=== PATIENT | female | born 1945 | race Caucasian/White ===

== ENCOUNTER → 2019-01-31 14:14 | Outpatient (CLI) | payer MEDICARE, OTHER, SELFPAY ==
--- NOTE | 2019-02-02 10:37 | DI.NM.S_ITS ---
DATE OF SERVICE: 01/31/2019 PROCEDURE PERFORMED: Exercise treadmill [id number] myocardial perfusion imaging study with gating to assess ejection fraction and regional wall motion. ORDERING PROVIDER: Maciel Graves MD INDICATIONS: The patient is a 73-year-old female with a history of coronary artery bypass grafting, now with atypical symptoms. EXERCISE TREADMILL TESTING: The patient was able to exercise for a total of 7 minutes and 2 seconds on standard Tim protocol, suggesting very good exercise capacity with YESIKA of -27%. She had a normal heart rate response, achieving a maximum heart rate of 132 bpm (89% of her predicted maximum). She had a hypertensive blood pressure response with a resting blood pressure of 160/90, increasing to a peak of 240/100. She had no chest discomfort. Her resting ECG shows sinus rhythm with fairly normal ST segments. With exercise, she develops 1-[address] depression that promptly becomes upsloping in early recovery but then with later down-sloping ST depression in the inferolateral leads, which could be an ischemic response but is nonspecific in the setting of a hypertensive blood pressure response. There were no arrhythmias. At 6 minutes 10 seconds of exercise, at a heart rate of 132 bpm, 25.5 mCi of technetium-99 Myoview was injected and the patient was imaged 20 minutes later using a gated SPECT acquisition protocol. She returned the following day and was reinjected with an additional 24.9 mCi of technetium-99 Myoview and was imaged 15 minutes later, again using a gated SPECT acquisition protocol. FINDINGS: 1. Raw data: There is fairly good myocardial tracer uptake with slight breast shadows noted. The lung/heart ratio is normal at 0.38 with a normal TID ratio of 0.84. 2. Quantitative gated SPECT: Post-stress ejection fraction is estimated at 74% without any focal wall motion abnormality and specifically the anterior wall appears to have brisk contractility. The resting ejection fraction is also 74% without any wall motion abnormality with a resting end-diastolic volume of 96 mL. 3. Myocardial perfusion imaging: Post-stress supine images show a fairly normal myocardial perfusion pattern with a very subtle defect in the distal anterior wall extending to, but not including, the apex. This defect completely resolves on the prone images and thus likely reflects breast attenuation. The resting images show a similar perfusion pattern with a mild defect in the distal anterior wall, although slightly improved. Yet, given the normal prone images, this likely reflects differential breast positioning. CONCLUSIONS: 1. Probable normal myocardial perfusion study. 2. Subtle, small, predominantly fixed but slightly reversible perfusion defect in the distal anterior wall that resolves on prone imaging, most consistent with breast attenuation artifact. There is no compelling evidence for significant myocardial ischemia or previous myocardial infarction. 3. Normal left ventricular systolic function without any focal wall motion abnormality. 4. Very good exercise capacity without angina but with a significant hypertensive blood pressure response to exercise. There are ST and T-wave abnormalities with exercise and in recovery that could reflect an ischemic response or a manifestation of her hypertensive blood pressure response. Given the absence of any profound perfusion defects, the latter is suspected. Edilma Rivera - RS/fn/ts doc#: [id number]/job#: [id number] dd: 02/01/2019 12:47:00 dt: 02/02/2019 10:14:00 DICTATING MD/COPIES TO: Leo Fernandez MD; Maciel Graves MD; Kaye Díaz COPIES MNE: MARVEL BOURGEOIS
== END ==
PROVIDERS: Visit Provider Internal Medicine Cardiovascular Disease
DX: I25.10 Atherosclerotic heart disease of native coronary artery without angina pectoris (principal); Z95.1 Presence of aortocoronary bypass graft
CPT/HCPCS: 78452; 93016; 93017; 93018; A9502

== ENCOUNTER → 2023-05-31 12:07 | Outpatient (CLI) | payer MEDICARE, SELFPAY ==
--- NOTE | 2023-05-31 12:08 | DI.ECHO.S_ITS ---
[facility] +---------+ : : [address] [place] [address] : : : : [id number] : : : : Phone: [phone]+ Echocardiogram Report + + :Name: JANNET STEVE Study Date: 05/31/2023 Height: 63.5 in: :[facility] ReadingLocation: Weight: 167 lb : : Gender: Female BSA: 1.8 m2 : :: 1945 Age: 78 yrs BP: 185/76 mmHg: :Reason For Study: CARDIAC MURMUR : :Ordering Physician: OSCAR, : :FINA Nascimento Performed By: Kelsey Wheeler : :Referring: FINA MOORE W : + + Interpretation Summary The left ventricle is normal in size. The left ventricular ejection fraction is normal. The ejection fraction is estimated to be 55-60%. Diastolic parameters suggest a pseudonormalization pattern, consistent with probable elevated filling pressures. The right ventricle is normal size. The right ventricular systolic function is normal. There is mild to moderate mitral regurgitation. The aortic valve is mildly calcified. The aortic valve is not well visualized. There is mildly reduced leaflet mobility. No significant aortic stenosis. There is moderate tricuspid regurgitation. The right ventricular systolic pressure is estimated to be at least 32 mmHg based on an estimated right atrial pressure of 3 mm Hg. BP: 185/76 mmHg Procedure: A two-dimensional transthoracic echocardiogram with color flow and Doppler was performed. The study quality was technically adequate. There is no prior echocardiogram noted for this patient. The patient was in sinus rhythm with heart rates between 55-75 bpm during the exam. Left Ventricle: The left ventricle is normal in size. Left ventricular wall thickness is mildly increased. Proximal septal thickening is noted. There is no thrombus. The ejection fraction is estimated to be 55-60%. The left ventricular ejection fraction is normal. There are no focal wall motion abnormalities. Diastolic parameters suggest a pseudonormalization pattern, consistent with probable elevated filling pressures. Right Ventricle: The right ventricle is normal size. The right ventricular systolic function is normal. Atria: The left atrium is mildly dilated. The right atrium is mildly dilated. There is no Doppler evidence for an interatrial shunt. Mitral Valve: There is mild mitral annular calcification. The mitral valve leaflets appear mildly thickened, but open well. There is mild to moderate mitral regurgitation. Aortic Valve: The aortic valve is mildly calcified. The aortic valve is not well visualized. There is mildly reduced leaflet mobility. There is no hemodynamically significant valvular aortic stenosis. No aortic regurgitation is present. Tricuspid Valve: The tricuspid valve is normal. There is moderate tricuspid regurgitation. The right ventricular systolic pressure is estimated to be at least 32 mmHg based on an estimated right atrial pressure of 3 mm Hg. Pulmonic Valve: The pulmonic valve leaflets are thin and pliable; valve motion is normal. There is mild pulmonic regurgitation. Great Vessels: The aortic root is normal size. The dimensions of the ascending aorta are normal. The IVC is of normal diameter and collapses greater than 50% with a sniff. This suggests a low right atrial pressure of 3 mm Hg. Pericardium/ Pleura There is no pericardial effusion. There is no pleural effusion. MMode/2D Measurements & Calculations LVIDd: 4.4 cm LVOT diam: 2.0 cm LVIDs: 2.8 cm Ao root diam: 3.2 cm FS: 36.3 % asc Aorta Diam: 3.3 cm IVSd: 1.3 cm Ao Arch Diam (Prox Trans): 3.2 cm LVPWd: 1.1 cm LV flaherty. diameter/BSA (cm/m^2): 2.4 LV sys. diameter/BSA (cm/m^2): 1.5 LA A2 area: 19.2 cm2 RA long axis: 5.4 cm LA A4 area: 21.3 cm2 RA area: 20.7 cm2 LA length (vol): 5.4 cm RA vol: 67.9 ml LA vol: 63.5 ml RA : 37.6 ml/m2 LA vol index: 35.2 ml/m2 IVC diam: 1.7 cm RVD1 (basal): 4.0 cm TAPSE: 1.6 cm Doppler Measurements & Calculations Ao V2 max: 148.5 cm/sec LVOT Max Jimbo: 95.1 cm/sec Ao V2 mean: 106.1 cm/sec LV V1 max P.6 mmHg Ao max P.8 mmHg LV V1 VTI: 25.7 cm Ao mean P.0 mmHg JOSE ALEJANDRO(I,D): 2.1 cm2 Ao V2 VTI: 37.2 cm JOSE ALEJANDRO(V,D): 1.9 cm2 sev ratio: 0.69 JOSE ALEJANDRO indexed to BSA (cm^2/m^2): 1.2 MV E max jimbo: 89.2 cm/sec TR max jimbo: 268.9 cm/sec MV A max jimbo: 67.4 cm/sec TR max P.9 mmHg MV E/A: 1.3 PA V2 max: 68.1 cm/sec Med Peak E' Jimbo: 5.4 cm/sec PA V2 mean: 49.6 cm/sec E/E' med: 16.4 PA mean P.1 mmHg Lat Peak E' Jimbo: 8.2 cm/sec PA pr(Accel): 22.5 mmHg E/E' lat: 10.8 E/e' average: 13.6 MV dec time: 0.23 sec SV(LVOT): 77.8 ml Reading Physician:03:18 PM
== END ==
PROVIDERS: Referring Provider Nurse Practitioner; Visit Provider Nurse Practitioner
DX: R01.1 Cardiac murmur, unspecified (principal); I08.1 Rheumatic disorders of both mitral and tricuspid valves
CPT/HCPCS: 93306

== ENCOUNTER → 2023-11-02 09:12 | Outpatient (CLI) | payer MEDICARE, SELFPAY ==
--- NOTE | 2023-11-02 09:14 | DI.NM.S_ITS ---
PROCEDURE: NM COLLEEN PERF SPECT R&S PHARM Rest and pharmacological stress myocardial perfusion SPECT with gated imaging and ejection fraction RADIOPHARMACEUTICAL: 11.4 mCi Tc-99m tetrafosmin IV at rest and 25.0 mCi Tc-99m tetrafosmin IV at peak effect of pharmacological stress. [id number] was performed. INDICATIONS: CAD MONITORING / HX CABG PQRS ATTESTATIONS: Measure 322 - Is this imaging test primarily performed on a low-risk surgery patient for preoperative evaluation within 30 days preceding their low-risk non-cardiac surgery? Low-risk surgery is defined as cardiac or myocardial infarction less than 1%, including (but not limited to) endoscopic procedures, superficial procedures, cataract surgery, and excisional breast surgery: Answer: No Measure 323 - Is this imaging test performed primarily for the monitoring of an asymptomatic patient who had percutaneous coronary intervention on the visit date or within 2 years of the visit date? Answer: No Measure 324 - Is this imaging test performed primarily for the initial detection and risk assessment on an asymptomatic, low coronary heart disease patient? Low CHD risk definition = clinicians should consider the maximum number of available patient factors used to estimate risk based on Edson (ATP III criteria), typically age, gender, diabetes, smoking status, and use of blood pressure medication, and integrate age appropriate estimates for missing elements, such as LDL or standard blood pressure. Answer: No TECHNIQUE: Radiopharmaceutical was injected at peak stress test, and also at rest. SPECT images were obtained. SPECT myocardial perfusion images were displayed in short axis, horizontal long axis, and vertical long axis views. Gated images were reviewed using easyfolioQUANT software. COMPARISON: None. CARDIAC STRESS: A pharmacologic stress test was performed under the supervision of an attending staff, using an infusion of 0.4 mg of Lexiscan. Hemodynamic data: There is normal blood pressure and heart rate response to pharmacologic stress. Symptoms: The patient denied anginal chest pain. Aminophylline: None EKG: During Lexiscan infusion, patient developed frequent PVCs with horizontal ST depressions which was noted at 1 minutes and 0 seconds into recovery. These ST segment depressions persisted until the end of the stress test at 5 minutes and 0 seconds. No chest pains were voiced.. FINDINGS: Raw data: There is good myocardial uptake of radiotracer. No significant motion artifacts. Vnlp-tt-kmhke ratio is 0.45 (normal is less than 0.38 for tetrafosmin tracer). Left ventricle function: Gated images demonstrate normal left ventricular wall thickening. No segmental wall motion abnormalities. No transient ischemic dilation; TID is 0.93 (normal less than 1.3). Left ventricle resting end diastolic volume is 92 mL. Left ventricle stress ejection fraction is 86; normal range is above 45%. Myocardial perfusion: There is normal distribution of activity in the right and left ventricular myocardium. No fixed or reversible perfusion defects. IMPRESSION: 1. Negative Lexiscan myocardial perfusion scan in terms of ischemia and infarction. Dictated by: Ruddy Pittman M.D. on 11/02/2023 at 16:47 Approved by: Ruddy Pittman M.D. on 11/02/2023 at 16:51
== END ==
PROVIDERS: PCP Student in an Organized Health Care Education/Training Program; Referring Provider Nurse Practitioner; Visit Provider Nurse Practitioner
DX: I25.810 Atherosclerosis of coronary artery bypass graft(s) without angina pectoris (principal)
CPT/HCPCS: 78452; 93017; A9502; J2785